=== PATIENT | male | born 1975 | race Hispanic/Latino ===

== ENCOUNTER → 2019-09-06 | Outpatient (CLI) | payer BC | END | disposition home or self-care (01) | LOC: RAH 10:07 | PROVIDERS: ATTEND Family Medicine | DX: I74.9 Embolism and thrombosis of unspecified artery (principal) | CPT/HCPCS: 93306; 93880 ==

== ENCOUNTER → 2019-12-22 | Outpatient (CLI) | payer OTHER | END | disposition home or self-care (01) | LOC: RAH 11:12 | PROVIDERS: ATTEND Internal Medicine Cardiovascular Disease | DX: Z13.6 Encounter for screening for cardiovascular disorders (principal) | CPT/HCPCS: 75571 ==

== ENCOUNTER 2020-07-27 06:03 | Day surgery (SDC) | payer BC, OTHER ==
[~2020-07-27] VITALS: Ht 180.3 cm; Wt 73.9 kg
[~2020-07-27 06:03] MED LIST: AEC81 PO; ATOR20TA65 PO; CETI10TA57 PO; FAMO40TA75 PO; SUCR1TAB2 PO
[2020-07-27] MEDS ORDERED: SODIUM CHLORIDE 0.9% 1000ML 1,000 ML IV ONE (06:13)
[2020-07-27 06:49] VITALS: BP 118/82
[2020-07-27] MEDS ORDERED: PROPOFOL 10 MG/ML 20ML VIAL IV ONE (08:17)
[2020-07-27 08:30] VITALS: BP 104/64
[2020-07-27 08:35] VITALS: BP 110/63
[2020-07-27 08:40] VITALS: BP 102/72
[2020-07-27 08:45] VITALS: BP 109/74
[2020-07-27 08:50] VITALS: BP 115/58
== END 2020-07-27 09:00 | disposition home or self-care (01) ==
LOC: DAH 06:03 → ENDO 06:03
PROVIDERS: ATTEND Internal Medicine
DX: R13.10 Dysphagia, unspecified (principal); K22.8 Other specified diseases of esophagus; K29.50 Unspecified chronic gastritis without bleeding; K23 Disorders of esophagus in diseases classified elsewhere; E78.5 Hyperlipidemia, unspecified; Z20.828 Contact with and (suspected) exposure to other viral communicable diseases; Z79.899 Other long term (current) drug therapy; Z79.82 Long term (current) use of aspirin
CPT/HCPCS: 43239; 93005; A4215; A4221; A4222; A4223; A4606; A4620; A4657; A4663; C9803; J2704; J7030; U0003

== ENCOUNTER → 2023-01-24 | Outpatient (CLI) | payer BC ==
[2023-01-24 12:50] LABS: CHOLESTEROL 86 mg/dL (<200); HDL CHOLESTEROL 45 mg/dL (29-71); LDL DIRECT 39 mg/dL (0-99); TRIGLYCERIDES 28 mg/dL (30-200)
== END | disposition home or self-care (01) ==
LOC: LAB 08:25
PROVIDERS: ATTEND Internal Medicine Cardiovascular Disease
DX: E78.5 Hyperlipidemia, unspecified (principal)
CPT/HCPCS: 36415; 80061

== ENCOUNTER → 2024-01-27 | Outpatient (CLI) | payer BC ==
[2024-01-27 12:44] LABS: CHOLESTEROL 96 mg/dL (<200); HDL CHOLESTEROL 45 mg/dL (29-71); LDL DIRECT 46 mg/dL (0-99); TRIGLYCERIDES 51 mg/dL (30-200)
== END | disposition home or self-care (01) ==
LOC: LAB 08:29
PROVIDERS: ATTEND Internal Medicine Cardiovascular Disease
DX: E78.5 Hyperlipidemia, unspecified (principal)
CPT/HCPCS: 36415; 80061